=== PATIENT | female | born 1945 | race Caucasian/White ===

== ENCOUNTER 2025-08-24 20:02 | Emergency (ER) | payer MEDICARE, OTHER, SELFPAY ==
[2025-08-24] VITALS (12 sets, daily range): BP systolic 121–182; BP diastolic 77–100; PULSE 93–160; TEMP 36.6; O2SAT 91–98; BMI 46.1
--- NOTE | 2025-08-24 20:17 | XR_ITS ---
The [address] [address] Patient Name: ANGE MCGILL MRN: [id number] date: 1945 Sex: F Assigned Patient Location: ER Current Patient Location: ER Accession/Order Number: [id number] Exam Date: 08/24/2025 20:40 Report Date: 08/24/2025 21:54 At the request of: TAJ HOWE MD Procedure: XR soft tissue neck Two-view SOFT TISSUE NECK CLINICAL HISTORY: FB sensation in throat COMPARISON: None FINDINGS: Unremarkable oropharyngeal nasopharyngeal, hypopharyngeal and tracheal air column. No prevertebral soft tissue swelling. No radiopaque foreign body. XR/XR soft tissue neck IMPRESSION: Unremarkable Impression dictated by: Malcolm Ochoa M.D. 08/24/2025 9:54 PM Dictation Location: [place] [address] Electronically authenticated by: [id number] Y Date: 08/24/2025 21:54
--- NOTE | 2025-08-24 20:18 | XR_ITS ---
The [address] [address] Patient Name: ANGE MCGILL MRN: [id number] date: 1945 Sex: F Assigned Patient Location: ER Current Patient Location: ER Accession/Order Number: [id number] Exam Date: 08/24/2025 20:40 Report Date: 08/24/2025 21:59 At the request of: TAJ HOWE MD Procedure: XR chest 1V PA CHEST: CLINICAL HISTORY: SOB, LE swelling COMPARISON: None The heart is normal in size. The lungs are clear. The pulmonary vasculature is normal. Mediastinum and hilar regions are unremarkable. No pleural effusions are seen. Visualized bones are intact. XR/XR chest 1V IMPRESSION: Negative acute pleural-parenchymal disease. Impression dictated by: Malcolm Ochoa M.D. 08/24/2025 9:59 PM Dictation Location: [place] [address] Electronically authenticated by: [id number] Y Date: 08/24/2025 21:59
--- NOTE | 2025-08-24 20:19 | ED.GENADUL1 ---
HPI HPI - General Adult General Chief complaint: Skin/Abscess/Foreign Body Stated complaint: Bone stuck in throat Time Seen by Provider: 08/24/25 20:07 Source: patient Mode of arrival: walk-in Limitations: no limitations History of Present Illness HPI narrative: This 79-year-old female presents for evaluation of a foreign body sensation in her throat. She states she was eating a small piece of chicken from [employer] when she states she feels like she swallowed a chicken bone and is stuck in her mid neck. She is not having difficulty breathing or swallowing. She is also complaining of dyspnea on exertion and swelling of her right lower extremity for the past week or so. She denies any weight gain. She has no chest pain. She has no nausea or vomiting. She states that every time she swallows she feels the foreign body sensation in her neck and when she turns her neck to the right she feels like it is sticking out. 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 She was formally on Coumadin but is not currently on any blood thinners. She and her drove from [place] where they live to [place] a week and a half ago. The swelling in her right leg started approximately 4 to 5 days ago. Related Data Home Medications ?Medication ?Instructions ?Recorded ?Confirmed amitriptyline 25 mg tablet 25 mg PO DAILY 08/24/25 08/24/25 atorvastatin 20 mg/5 mL (4 mg/mL) 20 mg PO DAILY 08/24/25 08/24/25 oral suspension calcium carbonate 600 mg PO DAILY 08/24/25 08/24/25 celecoxib 200 mg capsule (Celebrex) 200 mg PO DAILY 08/24/25 08/24/25 Allergies Allergy/AdvReac Type Severity Reaction Status Date / Time No Known Drug Allergies Allergy Verified 08/24/25 20:13 Review of Systems ROS Status of ROS 10 or more systems reviewed and unremarkable except as noted in history and below PFSH PFSH Social History Little interest or pleasure in doing things: not at all Feeling down, depressed, or hopeless: not at all Exam Narrative Exam Narrative: Vital signs and Nursing Notes reviewed: Patient is afebrile, tachycardic with a pulse of 110 and tachypneic with respirate of 28, blood pressure is elevated at 182/92, she is not hypoxic with pulse ox of 97% on room air General: Awake, alert, oriented, anxious adult female, no acute distress, lying comfortably on the stretcher-speech is clear, patient is tolerating her secretions HEENT: Normocephalic atraumatic, mucous membranes are moist and pink, eyes are clear, normal conjunctiva, vision is grossly intact, posterior pharynx is normal in appearance. Trachea is midline and easily mobile Neck: Supple, no meningeal signs, no anterior or posterior cervical lymphadenopathy Chest: Lungs are clear to auscultation with good air entry, there is no wheezing rhonchi or rales appreciated no accessory muscle use, patient is speaking in complete sentences-no chest wall tenderness to palpation CVS: Regular rate and rhythm S1-S2, no murmurs rubs or gallops, pulses are brisk and equal bilaterally ABD: Soft, nondistended, nontender, no rebound guarding or rigidity, bowel sounds are normal, no pulsatile masses appreciated Extremities: Moving all extremities, there is pitting edema to the right lower extremity from the knee to the foot, feet are warm and sensate, no calf tenderness noted Skin: Normal in appearance without rash,pallor, petechiae or purpura Neuro: No focal deficits Constitutional Vital Signs, click to edit/add: Last Vital Signs Temp 97.8 F 08/24/25 20:07 Pulse 91 H 08/25/25 01:00 Resp 21 H 08/25/25 01:00 BP 148/91 H 08/25/25 01:00 Pulse Ox 98 08/25/25 01:00 O2 Del Method Room Air 08/24/25 20:07 Course Vital Signs Vital signs: Vital Signs Temperature 97.8 F 08/24/25 20:07 Pulse Rate 110 H 08/24/25 20:07 Respiratory Rate 28 H 08/24/25 20:07 Blood Pressure 182/92 H 08/24/25 20:07 Pulse Oximetry 97 08/24/25 20:07 Oxygen Delivery Method Room Air 08/24/25 20:07 Temperature 97.8 F 08/24/25 20:07 Pulse Rate 91 H 08/25/25 01:00 Respiratory Rate 21 H 08/25/25 01:00 Blood Pressure 148/91 H 08/25/25 01:00 Pulse Oximetry 98 08/25/25 01:00 Oxygen Delivery Method Room Air 08/24/25 20:07 Medical Decision Making MDM Narrative Medical decision making narrative: 79-year-old female who recently drove to [place] from [place] presents for evaluation of a sensation of a chicken bone stuck in her throat. She was eating [place] fried chicken earlier today. She states it was a small piece and she thinks it was chicken breast but then felt a foreign body sensation in her throat. She has also had shortness of breath and exertional dyspnea for the past several days. 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 She is not currently on any anticoagulation. She does have swelling and increased leg circumference in the right lower extremity. She denies any chest pain. She has not had any dizziness or syncope. She is not having difficulty breathing, swallowing speaking or tolerating her secretions. EKG done upon arrival is a sinus tachycardia at 102 bpm with an indeterminate axis. An IV was placed and she was given a GI cocktail for the discomfort in her throat. Soft tissue of the neck and chest x-ray was ordered as well as a cardiac workup. She has a normal white count and stable hemoglobin. Electrolytes are normal with an elevated creatinine at 1.31. Troponin is normal. BNP is elevated at 2922. D-dimer is markedly elevated at 24.49. Bilateral duplex ultrasounds and CT angio of the chest to rule out pulmonary embolism was ordered. She has been stable on the equipment monitor phototypesetting. Chest x-ray does not show any acute findings, soft tissue neck x-ray does not show any acute findings, ultrasound of bilateral lower extremities shows a almost entirely occlusive DVT within the proximal femoral vein extending into the popliteal vein with the veins below the knee appearing patent with soft tissue edema. Right lower extremity shows occlusive DVT within the right femoral vein extending to the popliteal vein into visualized portions of the peroneal and posterior tibial veins, anterior tibial vein appears patent. Patient was given a heparin bolus and started on a heparin drip DVT/PE protocol. CT angiogram of the chest was ordered to include the portion of the neck where the patient feels that she has a foreign body; CT scan of the chest shows a large saddle pulmonary embolism appearing subtotal within the left main pulmonary artery with evidence of right heart strain, pericardial fluid identified, no adenopathy, lungs are clear, no effusion or pneumothorax no airspace opacities to suggest atelectasis or definite infarct at this time. She was accepted for transfer to [facility], Dr Maurer. She remains hemodynamically stable in the ER. Lab Data Lab results reviewed: Yes I reviewed the patient's lab results Labs: Lab Results 08/24/25 Range/Units 20:25 WBC 8.9 (4.0-11.0) 10^3/uL RBC 4.28 (4.20-5.40) 10^6/uL Hgb 13.3 (12.0-16.0) g/dL Hct 41.4 (36.0-48.0) % MCV 96.7 (81.0-99.0) fL MCH 31.1 (26.7-34.0) pg MCHC 32.1 (29.9-35.2) g/dL RDW 14.0 (11.0-15.0) % Plt Count 129 L (150-450) 10^3/uL MPV 10.3 (9.5-13.5) fL Neut % (Auto) 67.5 (43.0-75.0) % Lymph % (Auto) 23.8 (20.5-60.0) % [place] % (Auto) 6.3 (1.7-12.0) % Eos % (Auto) 1.4 (0.9-7.0) % Baso % (Auto) 0.5 (0.2-2.0) % Neut # (Auto) 6.0 (1.4-6.5) 10^3/uL Lymph # (Auto) 2.1 (1.2-3.8) 10^3/uL [place] # (Auto) 0.6 (0.3-0.8) 10^3/uL Eos # (Auto) 0.1 (0.0-0.7) 10^3/uL Baso # (Auto) 0.0 (0.0-0.1) 10^3/uL Abs Immat Gran (auto) 0.04 H (0.00-0.03) 10^3/uL Imm/Tot Granulo (auto) 0.5 (0.0-0.5) % PT 11.3 (9.0-11.6) sec INR 1.07 D-Dimer 24.49 H* (<=0.59) mg/L FEU Sodium 145 (136-145) mmol/L Potassium 3.6 (3.5-5.1) mmol/L Chloride 111 H (98-107) mmol/L Carbon Dioxide 24.3 (21.0-32.0) mmol/L Anion Gap 13.3 BUN 20.0 H (7.0-18.0) mg/dL Creatinine 1.31 H (0.55-1.02) mg/dL Est GFR ( Amer) 48 L (>=60 mL/min/1.73m^2) Est GFR (Non-Af Amer) 39 L (>=60 mL/min/1.73m^2) BUN/Creatinine Ratio 15.3 Glucose 144 H (74-106) mg/dL Calcium 9.5 (8.5-10.1) mg/dL Total Bilirubin 0.6 (0.2-1.0) mg/dL AST 17 (15-37) U/L ALT 22 (14-59) U/L Alkaline Phosphatase 121 H (46-116) U/L Troponin I High Sens 42.9 (4.0-51.3) pg/mL NT-Pro-B Natriuret Pep 2922.0 H* (<=1800.0) pg/mL Total Protein 7.0 (6.4-8.2) g/dL Albumin 3.6 (3.4-5.0) g/dL Globulin 3.4 g/dL Albumin/Globulin Ratio 1.1 Imaging Data Venous US: Radiologist's impression: ITS Impressions Soft Tissue Neck X-Ray 08/24/25 20:17 IMPRESSION: Unremarkable Impression dictated by: Malcolm Ochoa M.D. 08/24/2025 9:54 PM Dictation Location: [employer]--29 Electronically authenticated by: [id number] Y Date: 08/24/2025 21:54 Chest X-Ray 08/24/25 20:18 IMPRESSION: Negative acute pleural-parenchymal disease. Impression dictated by: Malcolm Ochoa M.D. 08/24/2025 9:59 PM Dictation Location: [employer]--29 Electronically authenticated by: [id number] Y Date: 08/24/2025 21:59 Chest CTA 08/24/25 20:57 IMPRESSION: Large saddle embolism appearing subtotal within the left main pulmonary artery. Evidence of right heart strain. No airspace opacity to suggest atelectasis or definite infarct at this time. Discussed with Dr. Oswald over telephone 10:55 PM 07/24/2025 IMPRESSION: No CT evidence of pulmonary embolism or acute cardiopulmonary process. Impression dictated by: Malcolm Ochoa M.D. 08/24/2025 10:56 PM Dictation Location: [facility] Electronically authenticated by: [id number] Y Date: 08/24/2025 22:56 ADDENDUM: 08/24/25 2329 IMPRESSION: Large saddle embolism appearing subtotal within the left main pulmonary artery. Evidence of right heart strain. No airspace opacity to suggest atelectasis or definite infarct at this time. Discussed with Dr. Oswald over telephone 10:55 PM 07/24/2025 IMPRESSION: No CT evidence of pulmonary embolism or acute cardiopulmonary process. Impression dictated by: Malcolm Ochoa M.D. 08/24/2025 10:56 PM Dictation Location: [facility] Electronically authenticated by: [id number] Y Date: 08/24/2025 22:56 ECG Data Attestation: I personally reviewed and interpreted this ECG as follows: (Sinus tachycardia at 102 bpm, nonspecific ST changes, indeterminate axis, no acute ST segment elevation or T wave inversion) Critical Care Time Critical Care Time Critical Care Time: Yes Total Critical Care Time: 40 Attestation: Due to the high probability of sudden and clinically significant deterioration in her condition she required the highest level of my preparedness to intervene urgently. I provided critical care time including documentation time, medication orders and management, reevaluation vital sign assessment ordering and reviewing of lab test ordering reviewing of radiographic studies and consultation with transfer physicians. Aggregate critical care time is 40 minutes including only time during which I was directly engaged with her care. Discharge Plan Discharge Chief Complaint: Skin/Abscess/Foreign Body Clinical Impression: Pulmonary embolism, DVT (deep venous thrombosis) Patient Disposition: [facility] Time of Disposition Decision: 01:25 Discharge Location: [facility] Condition: Serious Mode of Transportation: EMS
[2025-08-24 20:33] LABS: Hematocrit 41.4 % (36.0-48.0); Hemoglobin 13.3 g/dL (12.0-16.0); Immature Granulocytes Abs Auto 0.04 10^3/uL (0.00-0.03); Immature Granulocytes Pct Auto 0.5 % (0.0-0.5); Lymphocytes Absolute Auto 2.1 10^3/uL (1.2-3.8); Mean Corpuscular HGB Conc 32.1 g/dL (29.9-35.2); Mean Corpuscular Hemoglobin 31.1 pg (26.7-34.0); Mean Corpuscular Volume 96.7 fL (81.0-99.0); Platelet Count 129 10^3/uL (150-450); Red Blood Count 4.28 10^6/uL (4.20-5.40); White Blood Count 8.9 10^3/uL (4.0-11.0)
[2025-08-24 20:49] LABS: Alanine Aminotransferase 22 U/L (14-59); Albumin Globulin Ratio 1.1; Albumin Level 3.6 g/dL (3.4-5.0); Alkaline Phosphatase 121 U/L (46-116); Anion Gap 13.3; Aspartate Amino Transferase 17 U/L (15-37); Blood Urea Nitrogen 20.0 mg/dL (7.0-18.0); Calcium 9.5 mg/dL (8.5-10.1); Carbon Dioxide 24.3 mmol/L (21.0-32.0); Chloride 111 mmol/L (98-107); Estimated GFR (African America 48 (>=60 mL/min/1.73m^2); Estimated GFR (Non-African Ame 39 (>=60 mL/min/1.73m^2); Globulin 3.4 g/dL; Glucose 144 mg/dL (74-106); Potassium 3.6 mmol/L (3.5-5.1); Sodium 145 mmol/L (136-145); Total Protein 7.0 g/dL (6.4-8.2)
--- NOTE | 2025-08-24 20:57 | CT_ITS ---
The [address] [address] Patient Name: ANGE MCGILL MRN: [id number] date: 1945 Sex: F Assigned Patient Location: ER Current Patient Location: .[facility] Accession/Order Number: [id number] Exam Date: 08/24/2025 22:04 Report Date: 08/24/2025 22:56 At the request of: TAJ OSWALD MD Procedure: CT angio chest CT ANGIOGRAM OF THE CHEST, PULMONARY EMBOLISM PROTOCOL: CLINICAL INFORMATION: Shortness breath, elevated d-dimer COMPARISON: None TECHNIQUE: Following intravenous injection of contrast CT scans of the chest were obtained using pulmonary embolism protocol. Coronal and sagittal reconstructed images, as well as volume rendered CT pulmonary angiographic images were also submitted.The CT exam was performed using one or more of the following dose reduction techniques: Automated exposure control, adjustment of the MA and/or Kv according to patient size, or use of the iterative reconstruction technique. FINDINGS: Large saddle pulmonary embolism appearing subtotal within the left main pulmonary artery. There is evidence of right heart strain. Pericardial fluid identified. No adenopathy. Lungs are clear. No effusion or pneumothorax. Degenerative changes of the thoracic spine. Upper abdominal images are noncontributory. CT/CT angio chest IMPRESSION: Large saddle embolism appearing subtotal within the left main pulmonary artery. Evidence of right heart strain. No airspace opacity to suggest atelectasis or definite infarct at this time. Discussed with Dr. Oswald over telephone 10:55 PM 07/24/2025 IMPRESSION: No CT evidence of pulmonary embolism or acute cardiopulmonary process. Impression dictated by: Malcolm Ochoa M.D. 08/24/2025 10:56 PM Dictation Location: [place] [address] Electronically authenticated by: [id number] Y Date: 08/24/2025 22:56
--- OUTSIDE RECORDS SUMMARY | 2025-08-24 21:00 | XMS_ITS | Clinical Summary ---
Author Organization [facility] Address [address] [place] [address] Phone Care Team Providers Care Glass Fitter Name Role Phone Unavailable Primary Care Provider Unavailabl e Allergies No known active allergies Social History Tobacco UseTypesPacks/DayYears UsedDateSmoking Tobacco: Never Assessed CommentsUnknownSex and Gender InformationValueDate RecordedSex Assigned at Not on fileLegal EyiTrvvqq80/29/2024 1:51 PM ESTGender IdentityNot on fileSexual OrientationNot on file Last Filed Vital Signs Vital SignReadingTime TakenCommentsBlood Cgqgxfvy205/46011/29/2023 7:31 PM EST Ryhml750511/29/2023 7:31 PM IYOBkjnnwrhftu33.7 ??C (98.1 ??F)11/29/2023 2:17 PM ESTRespiratory Zifc389611/29/2023 7:31 PM ESTOxygen Lpdxpaewoj48%11/29/2023 7:31 PM ESTInhaled Oxygen Concentration--Arccxr118 kg (284 lb 6.3 oz)11/29/2023 2:17 PM ESTHeight--Body Mass Index-- Plan of Treatment Health MaintenanceDue DateLast DoneCommentsTyphoid Fever Ctosubk6711/25/1948 Hepatitis C Wupagakgl64/25/1962DTaP,Tdap,and Td Vaccines (1 - Tdap)1965 Pneumococcal 50+ Years (1 of 1 - PCV)1996Zoster Vaccine (1 of 2)1996 DEXA Scan2011Respiratory Syncytial Virus (RSV) 60 and above (1 - 1-dose 75+ series)2021Medicare Annual Wellness (AWV)/11/2022Well Visit Exam/OVID-19 Vaccine ( season)2025 Influenza Vaccine (#1)2025Meningococcal B VaccineAged OutNo longer eligible based on patient's age to complete this topicRespiratory Syncytial Virus (RSV) 20 MonthsAged OutNo longer eligible based on patient's age to complete this topic Insurance
--- OUTSIDE RECORDS SUMMARY | 2025-08-24 21:00 | XMS_ITS | Encounter Summary ---
Author Organization [facility] Address [address] [place] [address] Phone Care Team Providers Care Electoral Officer Name Role Phone Tonie Petit MD Primary Care Provider [phone] Reason for Visit * ReasonCommentsMed Refill Encounter Details DateTypeDepartmentCare Team (Latest Contact Info)Moazyqzfaae91/10/2025[facility] [address] [place] [address] Mike Roman MD [address] [place] [address] Social History Tobacco UseTypesPacks/DayYears UsedDateSmoking Tobacco: WhzedvUuzxyrrdnq671.8 12/30/1977 - 10/01/1999Passive Smoke Exposure: PastSmokeless Tobacco: Never Alcohol UseStandard Drinks/WeekCommentsNot Currently0 (1 standard drink = 0.6 oz pure alcohol)PHQ-2AnswerDate RecordedDepression Mcvt122Comments NoSex and Gender InformationValueDate RecordedSex Assigned at BirthFemale 06/15/2022 10:40 AM EDTLegal EdaLnpeuj63/24/2019 4:49 AM EDTGender Identity Zssqwr0606/15/2022 10:40 AM EDTSexual OrientationNot on filedocumented as of this encounter Plan of Treatment DateTypeDepartmentCare Team (Latest Contact Info)Enmyebfeygu45/11/2025 10:45 AM ESTOffice Visit [facility] [address] [place] [address] Tonie Petit MD [address] [place] [address] 09/29/2025 9:20 AM ESTOffice Visit [facility] [address] [place] [address] Narciso Mabry DPM [address] [place] [address] documented as of this encounter Visit Diagnoses Not on filedocumented in this encounter Care Teams Team MemberRelationshipSpecialtyStart [place] [address] [place] [address] PCP - GeneralFamily Medicine06/22/22documented as of this encounter
--- OUTSIDE RECORDS SUMMARY | 2025-08-24 21:00 | XMS_ITS | Encounter Summary ---
Author Organization [facility] Address [address] [place] [address] Phone Care Team Providers Care Supervisor Border Department Name Role Phone Mayank Petit MD Primary Care Provider Reason for Visit * ReasonOnset DateCommentsMed Zshdqi0508/10/2025 Encounter Details DateTypeDepartmentCare Team (Latest Contact Info)Avhjkmwvqts87/10/2025Telephone [facility] [address] [place] [address] Mayank Petit MD [address] [place] [address] Med Refill Social History Tobacco UseTypesPacks/DayYears UsedDateSmoking Tobacco: GptyebYafhhbwsfl658.8 12/30/1977 - 10/01/1999Passive Smoke Exposure: PastSmokeless Tobacco: Never Alcohol UseStandard Drinks/WeekCommentsNot Currently0 (1 standard drink = 0.6 oz pure alcohol)PHQ-2AnswerDate RecordedDepression Spkc722Comments NoSex and Gender InformationValueDate RecordedSex Assigned at BirthFemale 06/15/2022 10:40 AM EDTLegal TikCwemjp21/24/2019 4:49 AM EDTGender Identity Xwewgh6606/15/2022 10:40 AM EDTSexual OrientationNot on filedocumented as of this encounter Miscellaneous Notes * Telephone Encounter - JENNIFER Chávez - 08/10/2025 3:35 PM EST Called and LVM telling pt her prescription was sent in to the pharmacy of her request. * Telephone Encounter - Mayank Petit MD - 08/10/2025 12:54 PM EST Medication sent. * Addendum Note - Mayank Petit MD - 08/10/2025 12:53 PM ESTAddended by: MAYANK PETIT on: 08/10/2025 12:53 PM Modules accepted: Orders * Telephone Encounter - Marge Graham - 08/10/2025 11:04 AM ESTSummary: rerfill Pt is calling for refill on: celecoxib (CeleBREX) 200 mg capsule PT IS OUT OF TOWN AND NEEDS A REFILL ON THIS MEDS, 3 LEFT Sent to (temporary) : [facility] pharmacy [address] [place] [address] documented in this encounter Plan of Treatment DateTypeDepartmentCare Team (Latest Contact Info)Cqnnamlfntp09/11/2025 10:45 AM ESTOffice Visit [facility] - [facility] [address] [place] [address] Mayank Petit MD [address] [place] [address] 09/29/2025 9:20 AM ESTOffice Visit [facility] [address] [place] [address] Narciso Mabry DPM [address] [place] [address] documented as of this encounter Visit Diagnoses Diagnosis Arthropathy- Primary Unspecified arthropathy, site unspecified documented in this encounter Care Teams Team MemberRelationshipSpecialtyStart DateEnd Date Mayank Petit MD [address] [facility] [place] [address] PCP - GeneralFamily Medicine06/22/22documented as of this encounter
--- OUTSIDE RECORDS SUMMARY | 2025-08-24 21:00 | XMS_ITS | Clinical Summary ---
Author Organization [facility] Address [address] [place] [address] Phone Care Team Providers Care Pier Hand Helper Name Role Phone Tonie Petit MD Primary Care Provider Allergies No known active allergies Medications MedicationSigDispense QuantityRefillsLast FilledStart DateEnd DateStatus acetaminophen (TYLENOL) 325 mg tablet Take by mouth every 6 (six) hours as needed for mild pain (1-3).Active atorvastatin (LIPITOR) 20 mg tablet Indications:HypercholesterolemiaTAKE 1 TABLET BY MOUTH AT BEDTIME 90 tablet 4Active VITAMIN D2-VITAMIN K1 ORAL Take by mouth.Active cetirizine (ZyrTEC) 10 mg tablet Indications:Middle ear effusion, bilateralTake ONE tablet by mouth 1 (one) time each day. 30 tablet 512/5Active fluticasone propionate (FLONASE) 50 mcg/actuation nasal spray Indications:Middle ear effusion, bilateralAdminister TWO sprays into each nostril 1 (one) time each day. Shake gently. Before first use, prime pump. After use, clean and replace cap. 16 g 509/6Active Additional Information Patient not taking.Reported on 07/24/2025 celecoxib (CeleBREX) 100 mg capsule Take 1 capsule by mouth twice daily 60 capsule 5Active celecoxib (CeleBREX) 200 mg capsule Indications:ArthropathyTake ONE capsule by mouth 1 (one) time each day. 90 capsule 5Active celecoxib (CeleBREX) 100 mg capsule Take ONE capsule by mouth 2 (two) times a day. 60 capsule /08/2025Discontinued amitriptyline (ELAVIL) 25 mg tablet Indications:Chronic insomniaTake ONE tablet by mouth every night. 30 tablet /07/2025Discontinued(Formulary change) celecoxib (CeleBREX) 200 mg capsule Take ONE capsule by mouth 1 (one) time each day. 90 capsule Discontinued(Reorder) semaglutide, weight loss, (WEGOVY) 0.5 mg/0.5 mL pen injector Indications:Hyperglycemia,Class 3 severe obesity due to excess calories without serious comorbidity with body mass index (BMI) of 40.0 to 44.9 in adult, Arthropathy,Osteopenia of both hipsInject 0.5 mL under the skin every 7 (seven) days. 2 mL /07/2025Discontinued(Formulary change) mupirocin (BACTROBAN) 2 % ointment Indications:Skin ulcer, stage 1 (CMS/HCC)Apply topically 3 (three) times a day for 10 days. 22 g /Expired nystatin (MYCOSTATIN) cream Indications:Candidal intertrigoApply topically 2 (two) times a day for 7 days. 30 g /Expired Active Problems ProblemNoted DateDiagnosed DateAt high risk for falls06/22/2022 Resolved Problems ProblemNoted DateDiagnosed DateResolved DateBilateral pulmonary embolism Encounters DateTypeDepartmentCare NtyrQkepbehzizx31/10/2025Telephone [facility] [address] [place] [address] Tonie Petit MD Med Kuzihh6408/10/2025[facility] [address] [place] [phone] Mike Roman MD 07/30/2025Telephone [address] [address] Tonie Petit MD 07/24/2025 9:30 AM EDTOffice Visit [facility] [address] [place] [address] Danika Carlson PA-C Seborrheic keratoses (Primary Dx); Neoplasm of uncertain behavior of skin; Actinic skin damage; Zfbrftashoe92/24/0371Vhdpen15/21/2025 9:30 AM EDTOffice Visit [address] [address] Afshan Joseph, Multiple skin tags (Primary Dx); Viral warts, unspecified type; Skin ulcer, stage 1 (CMS/HCC); Candidal wlffkxucrz67/21/1408Djqgvg52/29/2025Telephone [address] [address] Tonie Petit MD 06/29/20250436Wkrezs93/25/2025 10:30 AM EDTOffice Visit [address] [address] Tonie Petit MD Hypercholesterolemia (Primary Dx); Hyperglycemia; Class 3 severe obesity due to excess calories without serious comorbidity with body mass index (BMI) of 40.0 to 44.9 in adult; Arthropathy; Seasonal allergies; Osteopenia of both hips; Abnormal gait06/25/2025 9:40 AM EDTOffice Visit [facility] [address] [place] [address] Kacey Gautam, DPM Dermatophytosis of nail (Primary Dx); Pain in both feet; Ingrowing nail; Disease of nail06/25/20251522Ojqeks24/24/7860Lgtntz97/23/2025 10:30 AM EDTOffice Visit [facility] [address] [place] [phone] Chadd Horne NP Middle ear effusion, bilateral (Primary Dx)06/23/20253054Vbymsh66/22/2025Travel 06/17/2025Telephone [facility] [address] [place] [phone] Tonie Petit MD 06/17/20251097Qmhmkd55/11/2025 4:00 PM EDTClinical Support [facility] [address] [place] [phone] Marisol Brandon, Incident Response Analyst 06/11/2025 3:40 PM EDTOffice Visit [facility] [address] [place] [phone] Jefry Viera, PAHaydeeC Primary osteoarthritis of left knee (Primary Dx); Acute pain of left knee06/11/20258262Fdeotv79/09/0928Spjhwd96/04/2025Travel 06/02/2025Travelfrom Last 3 Months Immunizations ImmunizationAdministration DatesNext DueInfluenza High Dose Preservative Free IM 07/27/2022Influenza, High-dose Season, Quadrivalent, Preservative Free07/02/2023 Family History Medical HistoryRelationNameCommentsCancerBrotherEdward Benitez JrAlcohol abuse FatherEdward LukasCancerFatherEdward LukasHypertensionFatherEdward LukasHearing lossMaternal GrandfatherJoseph NiemczykArthritisMotherLorraine LukasCancerMother Lauravivek MonterosDiabetesMotherLorraine LukasRelationNameStatusCommentsBrother Edodalis Marquis JrFatherEdward LukasMaternal GrandfatherJoseph NikevinAliveMother Laura Marquis Social History Tobacco UseTypesPacks/DayYears UsedDateSmoking Tobacco: EwafjnPhzkjkgqxb499.8 12/30/1977 - 10/01/1999Passive Smoke Exposure: PastSmokeless Tobacco: Never Tobacco Cessation:Counseling Given: No Alcohol UseStandard Drinks/WeekCommentsNot Currently0 (1 standard drink = 0.6 oz pure alcohol)PHQ-2AnswerDate RecordedDepression Fzna182Comments NoSex and Gender InformationValueDate RecordedSex Assigned at BirthFemale 06/15/2022 10:40 AM EDTLegal VtdXtmqwl98/24/2019 4:49 AM EDTGender Identity Orllpl1806/15/2022 10:40 AM EDTSexual OrientationNot on file Last Filed Vital Signs Vital SignReadingTime TakenCommentsBlood Kdcdwsxd755/7710 9:27 AM EDT Gwfqw296507/24/2025 9:27 AM CZXZqlxalamtko57.3 ??C (97.3 ??F)07/24/2025 9:27 AM EDTRespiratory Wjdr6594 9:27 AM EDTOxygen Jpaogvomuk04%07/21/2025 9:37 AM EDTInhaled Oxygen Concentration--Ciocyu34.6 kg (208 lb 8 oz)07/24/2025 9:27 AM HJZBpvkma137.1 cm (5' 5 )07/24/2025 9:27 AM EDTBody Mass Index34.710 9:27 AM EDT Plan of Treatment DateTypeDepartmentCare Team (Latest Contact Info)Tsibuyoimcj05/11/2025 10:45 AM ESTOffice Visit [facility] [address] [place] [address] Tonie Petit MD [address] [place] [address] 09/29/2025 9:20 AM ESTOffice Visit [facility] [address] [address] Narciso Mabry, DPM [address] [place] [place] [address] Health MaintenanceDue DateLast DoneCommentsGlaucoma Screening 67+ Yr1946 COVID-19 Vaccine (#1)2Pneumococcal Immunization 50+ (1 of 2 - PCV) 1965Zoster Vaccines (1 of 2)1965RSV 60+ or (1 - 1-dose 75+ series)2021Influenza Vaccine (#1), 07/27/2022nnual Wellness Visit6011/28/2024, 07/02/2023Osteoporosis ScreeningCompleted 12/17/2024MammogramDiscontinuedRSV under 20 monthsAged OutNo longer eligible based on patient's age to complete this topic Procedures Procedure NamePriorityDate/TimeAssociated DiagnosisCommentsBIOPSYRoutine 07/24/2025 10:37 AM EDT Neoplasm of uncertain behavior of skin CO ARTHROCENTESIS ASPIR&/INJ MAJOR JT/BURSA W/O WJGjbwxkt79/11/2025 4:28 PM EDT Primary osteoarthritis of left knee XR KNEE 3 VIEWS IYMHPsxpjjh24/11/2025 4:07 PM EDT Acute pain of left knee DEXA BONE NWEKRTWWynsroq48/19/2025 10:46 AM EDT Asymptomatic menopausal state from Last 3 Months or Most Recently Relevant to Health Maintenance Results * Biopsy (07/24/2025 10:37 AM EDT) Narrative Danika Carlson PA-C - 07/24/2025 10:37 AM EDT Danika Carlson PA-C 07/24/2025 10:41 AM Biopsy Date/Time: 07/24/2025 10:37 AM Performed by: Danika Carlson PA-C Authorized by: Danika Carlson PA-C ?? Consent: ??Consent obtained: ??Written ??Consent given by: ??Patient ??Risks discussed: ??Bleeding, infection and pain Indications: ??Indications: ??NUB x1 Pre-procedure details: ??Procedure prep: alcohol. Anesthesia (see MAR for exact dosages): ??Anesthesia method: ??Local infiltration ??Local anesthetic: ??Lidocaine 2% WITH epi Post-procedure details: ??Patient tolerance of procedure: ??Tolerated well, no immediate complications Result/Interpretation: ?? Shave biopsy x1 Right groin 0.8cm x 0.6cm Authorizing ProviderResult TypeResult StatusDanika [facility]/BEDSIDE ORDERABLESFinal Result * CO ARTHROCENTESIS ASPIR&/INJ MAJOR JT/BURSA W/O US (06/11/2025 4:28 PM EDT) Narrative Jefry Viera PA-C - 06/11/2025 4:28 PM EDT Jefry Viera PA-C 06/11/2025 4:29 PM lg Inj/Asp: L knee on 06/11/2025 4:28 PM Indications: pain Details: 24 G needle, anterolateral approach Medications: 4 mL lidocaine PF 10 mg/mL (1 %); 80 mg triamcinolone acetonide 40 mg/mL Outcome: tolerated well, no immediate complications Procedure, treatment alternatives, risks and benefits explained, specific risks discussed. Consent was given by the patient. Immediately prior to procedure a time out was called to verify the correct patient, procedure, equipment, network diagnostic support specialist and site/side marked as required. Patient was prepped and draped in the usual sterile fashion. Authorizing ProviderResult TypeResult [place] [facility]/BEDSIDE ORDERABLESFinal Result * XR Knee 3 Views Left (06/11/2025 4:07 PM EDT)Anatomical RegionLaterality ModalityLower Extremities, KneeLeftDigital RadiographySpecimen (Source) Anatomical Location / LateralityCollection Method / VolumeCollection Time Received Time Narrative 06/11/2025 4:07 PM EDT Imaging Result: 3 views of the left knee reveal yzva-bt-oyap degenerative changes in the left medial compartment with otherwise moderate degenerative changes in the patellofemoral and lateral compartments with osteophytosis loss of joint space and subchondral sclerosis. ??No fractures or dislocations Authorizing ProviderResult TypeResult StatusJefry Viera PA-CIMG XR PROCEDURES Final Result * Dexa Bone Density Axial Skeleton (12/17/2024 10:46 AM EDT)Anatomical Region LateralityModalityWrist, Hip, L-spineComputed RadiographySpecimen (Source) Anatomical Location / LateralityCollection Method / VolumeCollection Time Received Time12/17/2024 11:00 AM EDT Impressions 12/17/2024 11:01 AM EDT Findings consistent with World Health Organization category of osteopenia. Thank you very much for this referral. Electronically signed by: Gideon Moore MD 12/17/2024 11:01 AM Narrative 12/17/2024 11:01 AM EDT INDICATION: Post menopausal screening. COMPARISON: None. TECHNIQUE: Utilizing dual energy x-ray absorptiometry, bone density measurements were obtained of the lumbar spine and bilateral hip. FINDINGS: Lumbar Spine: The average bone mineral density from L1 to L4 is 1.274 g/cm2 with a T-score of +0.6 WHO classification normal. Bilateral hip: The average bone mineral density of the right femoral neck is 0.742 g/cm2 with a T-score of -2.1 osteopenia with similar readings in the contralateral hip. 10 year fracture risk for the hip 4.8% for major fracture 19.2% Procedure Note Gideon Moore MD - 12/17/2024 INDICATION: Post menopausal screening. COMPARISON: None. TECHNIQUE: Utilizing dual energy x-ray absorptiometry, bone density measurementswere obtained of the lumbar spine and bilateral hip. FINDINGS: Lumbar Spine: The average bone mineral density from L1 to L4 is 1.274g/cm2 with a T-score of +0.6 WHO classification normal. Bilateral hip: The average bone mineral density of the right femoral neckis 0.742 g/cm2 with a T-score of -2.1 osteopenia with similar readings inthe contralateral hip. 10 year fracture risk for the hip 4.8% for major fracture 19.2% IMPRESSION: Findings consistent with World Health Organization category ofosteopenia. Thank you very much for this referral. Electronically signed by: Gideon Moore MD 12/17/2024 11:01 AM Authorizing ProviderResult TypeResult StatusSoha Larsen GLAZE MAKER-BCIMG DXA PROCEDURESFinal Result from Last 3 Months or Most Recently Relevant to Health Maintenance Insurance * Guarantor: Brenda Marquis IAccount TypeRelation to PatientDate of BirthPhone Billing AddressPersonal/FdqimeAatf[birth year][address] [place] [address] [place] [address] Advance Directives For more information, please contact: [phone] * Full Code (Latest Code Status on File) Date ActivatedDate InactivatedComments06/10/2022 12:31 AM06/10/2022 5:10 PM Care Teams Team MemberRelationshipSpecialtyStart DateEnd Date Tonie Petit MD [address] [facility] [address] [facility]06/22/22
[2025-08-24 21:46] LABS: INR 1.07; Prothrombin Time 11.3 sec (9.0-11.6)
[2025-08-24] MEDS: HEPARIN SODIUM (PORCINE) 5,000 UNIT/ML VIAL 4500 UNIT IV (22:30)
[2025-08-24] MEDS: HEPARIN SODIUM,PORCINE/D5W 25,000 UNIT/500 ML IV.SOLN 30.384 UNIT IV (22:31)
[2025-08-25] VITALS (63 sets, daily range): BP systolic 104–156; BP diastolic 60–102; PULSE 78–103; O2SAT 97–100
[2025-08-25] MEDS: LORAZEPAM 0.5 MG TABLET 1 MG PO (03:09)
[2025-08-25 03:49] LABS: Partial Thromboplastin Time 52.1 sec (22.3-36.2)
--- NOTE | 2025-08-25 08:48 | PC.NURSE ---
bedside report given to [facility] team at this time. all questions answered. pts fiance' at bedside given directions to [facility] and pts rm number, denies further questions. pt denies needs prior to transport.
--- NOTE | 2025-08-25 09:00 | PC.NURSE ---
pt left [facility] ED at approx 0850. nursing report called to Angel LUNA at [facility] ICU. all questions answered. Angel LUNA denies questions or concerns for this RN.
== END 2025-08-25 08:50 | disposition short-term general hospital (02) ==
PROVIDERS: Emergency Provider Emergency Medicine
DX: I26.92 Saddle embolus of pulmonary artery without acute cor pulmonale (principal); I82.413 Acute embolism and thrombosis of femoral vein, bilateral; R06.09 Other forms of dyspnea; Z86.718 Personal history of other venous thrombosis and embolism; Z86.711 Personal history of pulmonary embolism
CPT/HCPCS: 36415; 51702; 70360; 71045; 71275; 80053; 83880; 84484; 85025; 85378; 85610; 85730; 93970; 96374; 99285; J1644; Q9967